=== PATIENT | female | born 1965 | race Caucasian/White ===

== ENCOUNTER 2022-04-01 18:59 | Emergency (ER) | payer OTHER ==
--- NOTE | 2022-04-01 20:30 | XRay Report ---
Bilateral knees INDICATION: Knee pain FINDINGS: Alignment appears normal bilaterally. No joint effusion is seen. No acute fractures identif ied. Signer Name: Nikhil Pierson MD Signed: 04/01/2022 8:25 PM Workstation Name: [id number]
[2022-04-01] MEDS ORDERED: ONDANSETRON 4 MG ODT TAB PO ONE (23:43)
[2022-04-01] MEDS ORDERED: IBUPROFEN 600 MG TAB PO ONE (23:43)
[2022-04-01] MEDS ORDERED: HYDROcodone/ACETAMINOPHEN 5-325 MG TAB PO ONE (23:43)
[2022-04-02 00:05] VITALS: BP 155/70
--- NOTE | 2022-04-02 00:24 | Emergency Department Report ---
ED Fall HPI - General Chief Complaint: Fall Stated Complaint: HURT KNEE POST FALL AT STORE Source: patient, family Mode of arrival: Wheelchair - History of Present Illness Initial Comments: Patient is a 56-year-old female with no past medical history who presents to the ED with complaint of acute onset persistent bilateral knee pain and right wrist pain after she slipped on a wet floor at a grocery store about 6 hours ago. Patient states that she landed on her knees and that she sustained mild abrasion on the anterior right knee and now has more significant pain on the right knee than on the left. Patient states that the pain is especially worse with any active range of motion or movement. Patient denies dizziness, syncope, seizures, chest pain and shortness of breath, neck pain, head or neck injuries, back pain, nausea and vomiting, abdominal pain, numbness and tingling or weakness of upper and lower extremities bilaterally. MD Complaint: fall, other (BILATERAL KNEE PAIN; RIGHT WRIST PAIN) -: hour(s) (6) Fall From: standing, other (slipped and fell down on her knees) When Fall Occurred: 4-6 hours [employer] Fall Witnessed: yes, by family, yes, by bystander Place Fall Occurred: other (grocery store) Loss of Consciousness: none Prolonged Down Time?: no Symptoms Prior to Fall: none Location: other (bilateral knee pain; right wrist pain) Location - Extremities: Left: Knee (Pain), Right: Forearm (right wrist pain), Knee Severity: severe Severity scale (0 -10): 8 Quality: sharp, aching Context: tripped/slipped Associated Symptoms: denies. denies: headache, neck pain, numbness, weakness, shortness of breath, abdominal pain, hematuria, unable to walk, lightheaded, vertigo, confusion - Related Data Previous Rx's Medication Instructions Recorded Last Taken Type Ibuprofen [Motrin] 600 mg PO Q8H PRN #15 tablet 08/18/16 Unknown Rx Metaxalone [Skelaxin] 800 mg PO Q8H PRN #30 tablet 04/02/22 Unknown Rx traMADoL [Ultram] 50 mg PO Q6HR PRN #10 tablet 04/02/22 Unknown Rx Allergies Allergy/AdvReac Type Severity Reaction Status Date / Time No Known Allergies Allergy Unverified 08/18/16 19:57 ED Review of Systems ROS: Stated complaint: HURT KNEE POST FALL AT STORE Other details as noted in HPI Constitutional: denies: chills, fever Eyes: denies: eye pain, eye discharge, vision change ENT: denies: ear pain, throat pain Respiratory: denies: cough, shortness of breath, wheezing Cardiovascular: denies: chest pain, palpitations Endocrine: no symptoms reported Gastrointestinal: denies: abdominal pain, nausea, vomiting, diarrhea Genitourinary: denies: urgency, dysuria, discharge Musculoskeletal: joint swelling (Swollen, painful right knee), arthralgia (Bilateral knee pain; right wrist pain). denies: back pain Skin: denies: rash, lesions Neurological: denies: headache, weakness, paresthesias Psychiatric: denies: anxiety, depression Hematological/Lymphatic: denies: easy bleeding, easy bruising ED Past Medical Hx - Social History Smoking Status: Unknown if ever smoked - Medications Home Medications: Home Medications Medication Instructions Recorded Confirmed Last Taken Type Ibuprofen [Motrin] 600 mg PO Q8H PRN #15 tablet 08/18/16 Unknown Rx Metaxalone [Skelaxin] 800 mg PO Q8H PRN #30 tablet 04/02/22 Unknown Rx traMADoL [Ultram] 50 mg PO Q6HR PRN #10 tablet 04/02/22 Unknown Rx ED Physical Exam - General Limitations: No Limitations General appearance: alert, in no apparent distress - Head Head exam: Present: atraumatic, normocephalic, normal inspection - Eye Eye exam: Present: normal appearance, PERRL, EOMI Pupils: Present: normal accommodation - ENT ENT exam: Present: normal exam, normal orophraynx, mucous membranes moist, TM's normal bilaterally, normal external ear exam - Neck Neck exam: Present: normal inspection, full ROM. Absent: tenderness - Respiratory Respiratory exam: Present: normal lung sounds bilaterally. Absent: respiratory distress, wheezes, rales, chest wall tenderness, accessory muscle use, decreased breath sounds, prolonged expiratory - Cardiovascular Cardiovascular Exam: Present: regular rate, normal rhythm, normal heart sounds. Absent: systolic murmur, diastolic murmur, rubs, gallop - GI/Abdominal GI/Abdominal exam: Present: soft, normal bowel sounds. Absent: tenderness, guarding, rebound, hyperactive bowel sounds, hypoactive bowel sounds, organomegaly - Extremities Exam Extremities exam: Present: normal inspection, tenderness (Palpable bilateral knee tenderness, right>left; mild right wrist tenderness), normal capillary refill, joint swelling (Mild right knee swelling and tenderness). Absent: full ROM (Limited range of motion of right knee due to pain), pedal edema, calf tenderness - Back Exam Back exam: Present: normal inspection, full ROM. Absent: tenderness, CVA tender ness (R), CVA tenderness (L), muscle spasm, paraspinal tenderness, vertebral tenderness - Neurological Exam Neurological exam: Present: alert, oriented X3, CN II-XII intact, normal gait, reflexes normal - Psychiatric Psychiatric exam: Present: normal affect, normal mood - Skin Skin exam: Present: warm, dry, intact, normal color. Absent: rash ED Course Vital Signs 04/01/22 04/02/22 19:22 00:04 Temperature 98.3 F Pulse Rate 97 H 84 Respiratory 18 18 Rate Blood Pressure 157/75 155/70 O2 Sat by Pulse 99 99 Oximetry ED Medical Decision Making - Radiology Data Radiology results: report reviewed, [place] [address] XRay Report Signed Patient: MELONY PERKINS MR#: [id number] : 1965 Acct:[id number] Age/Sex: 56 / F ADM Date: 04/01/22 Loc: ED Attending Dr: Ordering Physician: ERLIN IZQUIERDO MD Date of Service: 04/01/22 Procedure(s): XR knee BILAT 3V Accession Number(s): [id number] cc: ERLIN IZQUIERDO MD Fluoro Time In Minutes: Bilateral knees INDICATION: Knee pain FINDINGS: Alignment appears normal bilaterally. No joint effusion is seen. No acute fractures identified. Signer Name: Nikhil Rose MD Signed: 04/01/2022 8:25 PM Workstation Name: [id number] Transcribed By: CW Dictated By: KOBE ROSE MD Electronically Authenticated By: KOBE ROSE MD Signed Date/Time: 04/01/222024 DD/ 23 TD/TT: - Medical Decision Making This is a 56-year-old female with no past medical history who presents to the ED with complaint of acute onset persistent bilateral knee pain and right wrist pain after she slipped on a wet floor at a grocery store about 6 hours ago. Patient states that she landed on her knees and that she sustained mild abrasion on the anterior right knee and now has more significant pain on the right knee than on the left. Patient states that the pain is especially worse with any active range of motion or movement. In the ED, patient is alert and oriented x3 and is not in any distress. Patient was treated for pain in the ED and bilateral knee x-rays showed no acute fractures or subluxations. On reev aluation, patient's pain is moderately controlled with medication. The right knee was splinted with Rock wrap and the patient will discharge home on pain medications and advised to follow-up with his primary care physician in 5 to 7 days for reevaluation. Patient was advised return to the ED immediately if symptoms get worse. - Differential Diagnosis Knee sprain; knee contusion; knee fracture; wrist sprain Critical care attestation.: If time is entered above; I have spent that time in minutes in the direct care of this critically ill patient, excluding procedure time. ED Disposition Clinical Impression: Bilateral anterior knee pain Sprain of right knee Qualifiers: Encounter type: initial encounter Involved ligament of knee: unspecified ligament Qualified Code(s): S83.91XA - Sprain of unspecified site of right knee, initial encounter Sprain of right wrist Qualifiers: Encounter type: initial encounter Qualified Code(s): S63.501A - Unspecified sprain of right wrist, initial encounter Disposition: 01 HOME / SELF CARE / HOMELESS Is pt being admited?: No Does the pt Need Aspirin: No Condition: Stable Instructions: Knee Sprain, Adult, [id number], Musculoskeletal Pain, Wrist Sprain, Adult, Joint Pain, [id number], Acute Knee Pain, Adult, [id number] Additional Instructions: The bilateral knee x-ray showed no acute fractures or subluxations. Therefore t zohra medications with food, drink plenty of fluids and follow-up with your primary care physician in 5 to 7 days for reevaluation. Return to the ED immediately if symptoms get worse. Prescriptions: Metaxalone [Skelaxin] 800 mg PO Q8H PRN #30 tablet PRN Reason: Muscle Spasm traMADoL [Ultram] 50 mg PO Q6HR PRN #10 tablet PRN Reason: Pain Referrals: [facility] [Provider Group] - 3-5 Days Time of Disposition: 00:29 Print Language: PASHTO
== END 2022-04-02 00:48 | disposition home or self-care (01) ==
LOC: ED 18:59
DX: M25.562 Pain in left knee (principal); M25.561 Pain in right knee; S83.91XA Sprain of unspecified site of right knee, initial encounter; S63.501A Unspecified sprain of right wrist, initial encounter; W19.XXXA Unspecified fall, initial encounter; Y93.89 Activity, other specified; Y92.89 Other specified places as the place of occurrence of the external cause; Y99.8 Other external cause status
CPT/HCPCS: 99283; J3490; Q0162